=== PATIENT | female | born 1950 | race Caucasian/White ===

== ENCOUNTER 2016-10-19 07:12 | Day surgery (SDC) | payer MEDICARE, BC ==
--- NOTE | 2016-10-16 02:30 | HP ---
CC: Dr. Lieberman; Dr. Sapna Ordaz * ADMITTING HISTORY AND PHYSICAL: DATE OF ADMISSION: 10/19/16 AGE: 66 years, female. ADMITTING DIAGNOSES: 1. Hematuria. 2. Bladder lesions. PLANNED PROCEDURE: Cystoscopy excision biopsy and fulguration of bladder lesions. SURGEON: Dr. Lopez. HISTORY OF PRESENT ILLNESS: Jinny Brown is a 66-year-old lady who had recently undergone evaluation for hematuria and was noted to have multiple areas of hyperemic mucosa in the posterior wall and left lateral wall of the bladder without having an associated urinary tract infection. PAST MEDICAL HISTORY: Significant for: 1. Hypercholesterolemia. 2. Coronary artery disease. 3. History of premature ventricular contractions. MEDICATIONS ON ADMISSION: 1. Aspirin 81 mg a day. 2. Diltiazem 180 mg daily. 3. Myrbetriq 25 mg daily. 4. Omeprazole 20 mg daily. 5. Crestor 10 mg daily. ALLERGIES: CORTISONE nasal spray. REVIEW OF SYSTEMS: She denies any chest pain or shortness of breath. She had cardiac catheterization done on August 17, which revealed normal coronary arteries. PHYSICAL EXAMINATION GENERAL: Reveals a pleasant, healthy-appearing lady. VITAL SIGNS: Blood pressure is 120/64, pulse 76 per minute regular, oxygen saturation 98% on room air. LUNGS: Clear bilaterally. CARDIOVASCULAR: Regular rate and rhythm. S1, S2. ABDOMEN: Soft without masses. IMPRESSION: A 66-year-old lady with microscopic hematuria and above described bladder lesions. PLANNED PROCEDURE: Cystoscopy excision biopsy and fulguration of bladder lesions. [id number]/[facility] #: [id number] [facility]
[~2016-10-19 07:12] MED LIST: Famotidine IV* 10 MG/ML 2 ML (20 mg) IV ONE; cefTRIAXone(*) 2 GM ADDV.VIAL IVPB ONE
[2016-10-19] MEDS ORDERED: Famotidine IV* 10 MG/ML 2 ML (20 mg) ONE (07:43)
[2016-10-19] MEDS ORDERED: fentaNYL* 50 MCG/ML 2 ML VIAL (100 MCG VIAL) ONE (08:47)
[2016-10-19] MEDS ORDERED: Midazolam* 1 MG/ML 5 ML VIAL (5 MG) ONE (08:48)
[2016-10-19] MEDS ORDERED: Ondansetron INJ* 2 MG/ML VIAL ONE (09:09)
[2016-10-19] MEDS ORDERED: Ketorolac INJ* 30 MG/ML 1 ML VIAL ONE (09:09)
[2016-10-19] MEDS ORDERED: Propofol* 10 MG/ML 20 ML BTL IV PUSH ONE (09:09)
[2016-10-19] MEDS ORDERED: Lidocaine 2% PF * 5 ML VIAL ONE (09:09)
[2016-10-19] MEDS ORDERED: Furosemide IV* 10 MG/ML 2 ML VIAL (20 MG) ONE (09:13)
[2016-10-19] MEDS ORDERED: oxyCODONE TAB* 5 MG TAB PO PRN (09:35)
[2016-10-19] MEDS ORDERED: Acetaminophen TAB* 325 MG PO PRN (09:35)
[2016-10-19 11:45] VITALS: BP 125/73
--- NOTE | 2016-10-20 13:01 | OP ---
CC: Dr. Osvaldo Lieberman; Dr. Sapna Ordaz; Dr. Lopez OPERATIVE SUMMARY: DATE OF OPERATION: 10/19/16 DATE OF : [birth year] AGE/SEX: 66 years/Female. SURGEON: Gabo Lopez MD. ANESTHESIOLOGIST: Dr. Medina. ANESTHESIA: Spinal. PRE-OP DIAGNOSIS: 1. Hematuria. 2. Bladder lesions. POST-OP DIAGNOSIS: 1. Hematuria. 2. Bladder lesions. OPERATIVE PROCEDURE: Cystoscopy, excision, biopsy and fulguration of bladder lesions ( 2 to 3 cm). COMPLICATIONS: None. POSTOPERATIVE CONDITION: Stable. BLOOD LOSS: Minimal. OPERATIVE FINDINGS: 1. Few areas of thickened hyperemic mucosa, posterior bladder wall. 2. Few areas of hyperemic mucosa, left lateral wall (chronic inflammation, less likely low-grade mao perficial neoplasm). INDICATION: Jinny Brown is a 66-year-old lady who was evaluated for hematuria and was noted to ling ve the above described bladder lesions. DESCRIPTION OF PROCEDURE: After induction of spinal anesthesia, the patient was placed in dorsal li thotomy position. Sequential compression devices were in place and functioning. Initial cystoscopy revealed a normally located right and left ureteral orifices. The bladder was carefully examined. There were a few areas in the posterior bladder wall and in the left lateral wall with thickened hy peremic mucosa. The remainder of the bladder was unremarkable. Using biopsy forceps, excisional biopsies were performed and specimens were sent for histopathology labelled separately from the posterior bladder wall and left lateral wall. Using the Bugbee electro cautery, the edges and base of the lesions were carefully fulgurated. At the end of the procedure, hemostasis appeared satisfactory and there was no evidence of bladder perforation. An 18-[place] Fol ey was placed for temporary bladder drainage. The patient tolerated the procedure satisfactorily an d was transferred back to the recovery area in stable condition. [id number]/[facility] #: [id number]
== END 2016-10-19 12:02 | disposition home or self-care (01) ==
LOC: OR 07:12
PROVIDERS: ATTEND Urology
DX: N30.21 Other chronic cystitis with hematuria (principal); N32.9 Bladder disorder, unspecified; Z79.82 Long term (current) use of aspirin; E78.00 Pure hypercholesterolemia, unspecified; I25.10 Atherosclerotic heart disease of native coronary artery without angina pectoris; Z88.8 Allergy status to other drugs, medicaments and biological substances
CPT/HCPCS: 88305; J0696; J1885; J1940; J2250; J2405; J2704; J3010

== ENCOUNTER 2017-06-01 09:43 | Emergency (ER) | payer MEDICARE, BC ==
[2017-06-01 13:40] VITALS: BP 143/72
--- NOTE | 2017-06-01 14:44 | UC ---
Jere Walters Nilda, scribed for Theresa Guerin DO on 06/01/17 at 1259 . Back Pain HPI - HPI Summary HPI Summary: This patient is a 67 year old F presenting to [facility] with a chief complaint of constant chronic left lower back pain for the past year that has felt different for the past few days. The patient rates the aching pain 8/10 in severity. Symptoms aggravated by nothing and alleviated by Omeprazole. Patient reports lightheadedness (middle of the night and this morning, resolved), nausea, diarrhea, chills, epistaxis (3-4 days ago), and abnormally dark urine. Patient denies vomiting, CP, SOB, cough, urinary frequency, and dysuria. Pt states recent sick contact with granddaughter with PNA. June 2016 pt had cardiac cath. Pt states medications for HTN, GERD, and HLD (Rosuvastatin). PMHx includes kidney issues ("bleeding bladder," seen by Dr. Lopez). - History of Current Complaint Chief Complaint: UCBackPain Stated Complaint: BACK PAIN Time Seen by Provider: 06/01/17 12:09 Hx Obtained From: Patient Onset/Duration: Gradual Onset, Lasting Days, Still Present Timing: Constant, Lasting Days Severity Currently: Severe Pain Intensity: 8 Pain Scale Used: 0-10 Numeric Back Pain: Is Discrete @ - left lower back Character: Aching Aggravating Factor(s): Nothing Alleviating Factor(s): Other - Omeprazole Associated Signs And Symptoms: Positive: Other - lightheadedness (middle of the night and this morning, resolved), nausea, diarrhea, chills, epistaxis (3-4 days ago), and abnormally dark urine. Patient denies vomiting, CP, SOB, cough, urinary frequency, and dysuria. - Allergies/Home Medications Allergies/Adverse Reactions: Allergies Allergy/AdvReac Type Severity Reaction Status Date / Time Corticosteroids Allergy Nasal Verified 06/01/17 13:15 (Glucocorticoids) [place], Headaches valdecoxib [From Bextra] Allergy Blurred Verified 06/01/17 13:15 [facility] Home Medications: Home Medications Esomeprazole Magnesium [Nexium 24Hr] 1 tab PO DAILY 06/01/17 [History Confirmed 06/01/17] PMH/Surg Hx/FS Hx/Imm Hx Endocrine History: Dyslipidemia Cardiovascular History: Cardiac Disease, Other - small artery disease Other Cardiovascular History: small artery disease GI/ History: Gastroesophageal Reflux - Surgical History Surgical History: Yes Surgery Procedure, Year, and Place: BUNION SURGERY RT FOOT, 2001 ; LT [place] SURGERY , 2003 ; APPENDECTOMY, 2002. HEART CATH X3 2001 AND 2012, 2016 - Family History Known Family History: Positive: Hypertension Negative: Diabetes - Social History Alcohol Use: None Substance Use Type: None Smoking Status (MU): Never Smoked Tobacco - Immunization History Most Recent Tetanus Shot: UTD Review of Systems Constitutional: Chills ENT: Epistaxis Respiratory: Other - negative SOB, cough Cardiovascular: Other - negative CP Gastrointestinal: Diarrhea, Nausea, Other - negative vomiting Genitourinary: Other - abnormally dark urine; negative dysuria and frequency Musculoskeletal: Other: - left lower back pain Neurological: Other - lightheadedness (resolved) All Other Systems Reviewed And Are Negative: Yes Physical Exam Triage Information Reviewed: Yes Appearance: Well-Appearing, No Pain Distress, Well-Nourished Vital Signs: Initial Vital Signs Temp 99.1 F 06/01/17 10:38 Pulse 72 06/01/17 10:38 Resp 20 06/01/17 10:38 BP 131/70 06/01/17 10:38 Pulse Ox 99 06/01/17 10:38 Vital Signs Reviewed: Yes Eyes: Positive: Conjunctiva Clear. Negative: Discharge ENT: Positive: Normal ENT inspection, TMs normal. Negative: Tonsillar swelling , Tonsillar exudate, Trismus, Muffled voice, Hoarse voice Neck exam: Normal Neck: Positive: Supple Respiratory: Positive: Lungs clear, Normal breath sounds, No respiratory distress, No accessory muscle use Cardiovascular: Positive: RRR, No Murmur Abdomen Description: Positive: Soft, Other: - mild tenderness over the bladder. Negative: CVA Tenderness (R), CVA Tenderness (L), Distended, Guarding Bowel Sounds: Positive: Present Musculoskeletal Exam: Normal Musculoskeletal: Positive: Other: - palpable paraspinal spasm on the left greater than the right Neurological: Positive: Alert, Muscle Tone Normal Psychological Exam: Normal Psychological: Positive: Age Appropriate Behavior Skin Exam: Normal Skin: Positive: Other - Warm, Dry, Normal color Diagnostics - EKG Cardiac Rate: NL Cardiac Rhythm: Sinus: Normal - 60 bpm, no change from prior. ST Segment: Normal - no ST changes in 2 consecutive leads. Back Pain Course/Dx - Course Course Of Treatment: This patient is a 67 year old F presenting to [facility] with a chief complaint of constant chronic left lower back pain for the past year that has felt different for the past few days. The patient rates the aching pain 8/ 10 in severity. Symptoms aggravated by nothing and alleviated by Omeprazole. Patient reports lightheadedness (middle of the night and this morning, resolved) , nausea, diarrhea, chills, epistaxis (3-4 days ago), and abnormally dark urine. Patient denies vomiting, CP, SOB, cough, urinary frequency, and dysuria. Pt states recent sick contact with granddaughter with PNA. June 2016 pt had cardiac cath. Pt states medications for HTN, GERD, and HLD (Rosuvastatin). PMHx includes kidney issues ("bleeding bladder," seen by Dr. Lopez). UA reveals 2+ blood. An EKG reveals NSR, 60 bpm, no ST changes in 2 consecutive leads, No change from prior. Patient will be discharged with prescription for Keflex and follow up from PCP. The patient is agreeable with this plan. Medications reviewed. Allergies reviewed. Dx UTI and GERD. - Differential Dx/Diagnosis Provider Diagnoses: UTI and GERD Discharge - Discharge Plan Condition: Stable Disposition: HOME Prescriptions: Cephalexin CAP* [Keflex CAP*] 500 mg PO BID #14 cap Patient Education Materials: Urinary Tract Infection in Women (ED), Gastroesophageal Reflux Disease (ED) Referrals: Osvaldo Lieberman MD [Primary Care Provider] - (follow up in 3-5 days) Additional Instructions: CEPHALEXIN: The antibiotic you've been prescribed is a member of the cephalosporin class. This type of antibiotic covers a wide variety of infections, including those of the skin, lungs, and urinary tract. It's useful for staph infections. This antibiotic is slightly similar to the penicillin family. In rare cases , a person who is allergic to penicillin will also be allergic to this medication. If you have had a severe allergic reaction to penicillin, and have not taken this antibiotic since that time, notify your doctor. Antibiotics which cover many germs ("broad spectrum" antibiotics) are more likely to cause diarrhea or "yeast" infections. Women prone to vaginal yeast problems may suffer an attack after taking this antibiotic. In infants, oral thrush (white spots "stuck" on the cheek) or yeast diaper rash may result. See your doctor if these problems occur. Call at once if you develop itching, hives , shortness of breath, or lightheadedness. ANYTIME YOU TAKE AN ANTIBIOTIC, IT IS IMPORTANT TO REPLENISH THE BODY'S SUPPLY OF "GOOD BACTERIA." YOU CAN GET GOOD BACTERIA FROM HIGH QUALITY CULTURED FOODS SUCH LOCAL YOGURT, SOUR KRAUT, EMERALD SONALI, NATURALLY FERMENTED PICKLES AND PROBIOTIC DRINKS. YOU CAN ALSO GET GOOD BACTERIA FROM A PROBIOTIC SUPPLEMENT. The documentation as recorded by the Jere mccarthy Nilda accurately reflects the service I personally performed and the decisions made by me, Theresa Guerin DO.
--- NOTE | 2017-06-02 15:17 | UC ---
- Progress Note Progress Note: called pt to check on her. pt reports that she is feeling much better. no new questions.
== END 2017-06-01 13:36 | disposition home or self-care (01) ==
LOC: UCEAST 09:43
DX: N39.0 Urinary tract infection, site not specified (principal); K21.9 Gastro-esophageal reflux disease without esophagitis; R42 Dizziness and giddiness; R11.0 Nausea; R19.7 Diarrhea, unspecified; E78.5 Hyperlipidemia, unspecified; I25.10 Atherosclerotic heart disease of native coronary artery without angina pectoris; Z88.8 Allergy status to other drugs, medicaments and biological substances
CPT/HCPCS: 81003; 87086; 93005; 99212; G0463